=== PATIENT | male | born 1955 | race African-American/Black ===

== ENCOUNTER 2017-10-18 19:53 | Emergency (ER) | payer BC ==
[2017-10-18 20:13] VITALS: BP 251/123; PULSE 87; RESP 20; TEMP 97.8; O2SAT 98
[2017-10-18 20:26] VITALS: BP 251/128; PULSE 93; RESP 18; O2SAT 98
[2017-10-18] MEDS ORDERED: LISI40TA PO (20:30)
[2017-10-18] MEDS ORDERED: ONDANSETRON HCL 4 MG/2 ML VIAL IV PUSH ONE (20:30)
[2017-10-18] MEDS ORDERED: MORPHINE SULFATE 4 MG/ML INJ IV PUSH ONE (20:30)
[2017-10-18 20:34] VITALS: O2SAT 98
--- NOTE | 2017-10-18 20:57 | PD ---
HPI Chief Complaint: Flank/Kidney Pain Time Seen by Provider: 20:24 Travel History International Travel<30 days: No Contact w/Intl Traveler<30days: No Traveled to known affect area: No History of Present Illness HPI 62-year-old male that presents to the ED for evaluation of left flank pain. Per patient his been started today. Per patient is 10 out of 10. He has a history of kidney stones in the past and states that this feels very similar to that. No urinary or bowel movement issues. Per patient his been drinking some today. He states that he has only left-sided flank pain. Per patient his possible blood pressure medication and did not take it today. Patient's blood pressure was noted to be very elevated vicarious. He denies any chest pain or shortness of breath. No headache. Pain is only to the left flank. No injuries. No trauma. No history of aneurysms. No numbness, tingling, weakness. Has no allergies to medication. PFSH Past Medical History Hypertension: Yes Inguinal Hernia: Yes Tetanus Vaccination: > 5 Years Social History Alcohol Use: Yes (etoh daily) Tobacco Use: No Substance Use: No Allergies-Medications (Allergen,Severity, Reaction): Coded Allergies: No Known Allergies (Unverified , 10/18/17) Reported Meds & Prescriptions Reported Meds & Active Scripts Active Percocet (Oxycodone-Acetaminophen) 5-325 mg Tab 1 Tab PO Q6H PRN Flomax (Tamsulosin HCl) 0.4 Mg Cap 0.4 Mg PO HS Diclofenac Sodium DR (Diclofenac Sodium) 75 Mg Tabdr 75 Mg PO BID PRN Reported Lisinopril 40 Mg Tab 40 Mg PO DAILY Review of Systems Except as stated in HPI: all other systems reviewed are Neg Physical Exam Narrative GENERAL: SKIN: Warm and dry. HEAD: Atraumatic. Normocephalic. EYES: Pupils equal and round. No scleral icterus. No injection or drainage. ENT: No nasal bleeding or discharge. Mucous membranes pink and moist. Tongue is midline. No uvula deviation. NECK: Trachea midline. No JVD. CARDIOVASCULAR: Regular rate and rhythm. No murmurs, S3, S4. RESPIRATORY: No accessory muscle use. Clear to auscultation. Breath sounds equal bilaterally. GASTROINTESTINAL: Abdomen soft, non-tender, nondistended. Hepatic and splenic margins not palpable. Tender to palpation the left CVA area. No lumbar, thoracic, cervical spine tenderness to palpation. MUSCULOSKELETAL: Extremities without clubbing, cyanosis, or edema. No obvious deformities. Full range of motion of the upper and lower extremities bilaterally. 2+ pulses bilaterally. NEUROLOGICAL: Awake and alert. No obvious cranial nerve deficits. Motor grossly within normal limits. Five out of 5 muscle strength in the arms and legs. Normal speech. PSYCHIATRIC: Appropriate mood and affect; insight and judgment normal. Data Data Last Documented VS Vital Signs Date Time Temp Pulse Resp B/P (MAP) Pulse Ox O2 Delivery O2 Flow Rate FiO2 10/18/17 21:44 89 16 214/106 (142) 96 Room Air 10/18/17 20:13 97.8 Orders Orders Electrocardiogram (10/18/17:28) Complete Blood Count With Diff (10/18/17:28) Comprehensive Metabolic Panel (10/18/17:28) Ckmb (Isoenzyme) Profile (10/18/17 20:28) Troponin I (10/18/17:28) Prothrombin Time / Inr (Pt) (10/18/17:28) Act Partial Throm Time (Ptt) (10/18/17 20:28) Blood Culture (10/18/17 20:28) Lipase (10/18/17:28) Urinalysis - C+S If Indicated (10/18/17:28) Magnesium (Mg) (10/18/17 20:28) Chest, Single Ap (10/18/17 20:28) Ct Abd/Pel W/O Iv Contrast (10/18/17:28) Iv Access Insert/Monitor (10/18/17:28) Ecg Monitoring (10/18/17:28) Oximetry (10/18/17 20:28) Morphine Inj (Morphine Inj) (10/18/17 20:30) Ondansetron Inj (Zofran Inj) (10/18/17 20:30) Labetalol Inj (Trandate Inj) (10/18/17 21:15) CKMB (10/18/17 20:40) CKMB% (10/18/17 20:40) Labetalol Inj (Trandate Inj) (10/18/17 21:45) Ketorolac Inj (Toradol Inj) (10/18/17 22:00) Labs Laboratory Tests Test 10/18/17 20:40 10/18/17 21:34 White Blood Count 6.9 TH/MM3 Red Blood Count 4.32 MIL/MM3 Hemoglobin 13.8 GM/DL Hematocrit 39.4 % Mean Corpuscular Volume 91.4 FL Mean Corpuscular Hemoglobin 31.9 PG Mean Corpuscular Hemoglobin Concent 34.9 % Red Cell Distribution Width 11.8 % Platelet Count 186 TH/MM3 Mean Platelet Volume 8.4 FL Neutrophils (%) (Auto) 79.2 % Lymphocytes (%) (Auto) 14.4 % Monocytes (%) (Auto) 5.6 % Eosinophils (%) (Auto) 0.7 % Basophils (%) (Auto) 0.1 % Neutrophils # (Auto) 5.5 TH/MM3 Lymphocytes # (Auto) 1.0 TH/MM3 Monocytes # (Auto) 0.4 TH/MM3 Eosinophils # (Auto) 0.0 TH/MM3 Basophils # (Auto) 0.0 TH/MM3 CBC Comment DIFF FINAL Differential Comment Prothrombin Time 10.2 SEC Prothromb Time International Ratio 1.0 RATIO Activated Partial Thromboplast Time 21.4 SEC Blood Urea Nitrogen 15 MG/DL Creatinine 1.08 MG/DL Random Glucose 117 MG/DL Total Protein 7.9 GM/DL Albumin 4.1 GM/DL Calcium Level 9.1 MG/DL Magnesium Level 2.0 MG/DL Alkaline Phosphatase 74 U/L Aspartate Amino Transf (AST/SGOT) 23 U/L Alanine Aminotransferase (ALT/SGPT) 28 U/L Total Bilirubin 0.4 MG/DL Sodium Level 142 MEQ/L Potassium Level 3.4 MEQ/L Chloride Level 106 MEQ/L Carbon Dioxide Level 24.3 MEQ/L Anion Gap 12 MEQ/L Estimat Glomerular Filtration Rate 84 ML/MIN Total Creatine Kinase 283 U/L Creatine Kinase MB 3.1 NG/ML Troponin I LESS THAN 0.02 NG/ML Lipase 146 U/L Urine Color YELLOW Urine Turbidity CLEAR Urine pH 7.0 Urine Specific Tyner 1.014 Urine Protein TRACE mg/dL Urine Glucose (UA) NEG mg/dL Urine Ketones NEG mg/dL Urine Occult Blood MOD Urine Nitrite NEG Urine Bilirubin NEG Urine Urobilinogen LESS THAN 2.0 MG/DL Urine Leukocyte Esterase NEG Urine RBC 177 /hpf Urine WBC 3 /hpf Urine Squamous Epithelial Cells <1 /hpf Urine Hyaline Casts 1 /lpf Urine Mucus FEW /lpf Microscopic Urinalysis Comment CULT NOT INDICATED MDM Medical Decision Making Medical Screen Exam Complete: Yes Emergency Medical Condition: Yes Medical Record Reviewed: Yes Interpretation(s) CBC & BMP Diagram 10/18/17 20:40 Total Protein 7.9, Albumin 4.1, Calcium Level 9.1, Magnesium Level 2.0, Alkaline Phosphatase 74, Aspartate Amino Transf (AST/SGOT) 23, Alanine Aminotransferase (ALT/SGPT) 28, Total Bilirubin 0.4 Last Impressions Chest X-Ray 10/18/172027 Signed Impressions: Service Date/Time: Wednesday, October 18, 2017 20:50 - CONCLUSION: No acute disease. Remy Vo MD Abdomen/Pelvis CT 10/18/172027 Signed Impressions: Service Date/Time: Wednesday, October 18, 2017 20:43 - CONCLUSION: 1. 2 mm calculus at left ureterovesical junction resulting in mild left-sided obstructive uropathy. 2. 2 mm nonobstructing right renal calculus. Remy Vo MD UA shows blood Differential Diagnosis Kidney stone versus flank pain versus muscle strain versus pancreatitis versus acute abdomen versus hypertension versus hypertensive emergency versus hypertension urgency Narrative Course 62-year-old male that presents to the ED for evaluation of left flank pain. Patient was properly examined and was found to have signs and symptoms consistent appears to be possible kidney stone. Of note it was noted the patient's blood pressure was very high. Patient did not take his blood pressure medications today. He has no chest pain or any other cardiac disease at this time. He does appear to be in quite significant amount of pain. At this time labs and imaging were ordered. Patient was started on IV pain medications. He will be reassessed. Patient was reassessed and does feel improved from pain. Patient's blood pressures did come down with medication and symptoms overall have improved. Patient was given labetalol to help bring down the blood pressure down as patient continues to have high elevated blood pressure. Patient has a 2 mm kidney stone. Patient was told that this likely will pass on its own. Patient agrees with discharge instructions. Patient was given prescriptions for Percocet, Flomax, diclofenac sodium. Told to drink plenty of fluids. Follow with PCP. See ED if worsening symptoms. Diagnosis Primary Impression: Kidney stone on left side Patient Instructions: General Instructions, Narcotic given in the ED Additional Instructions: Take medications as prescribed. Follow-up with PCP. See ED for any worsening symptoms. Do not drink or drive while taking pain medication. Apply ice or heat as needed for pain Med/Other Pt SpecificInfo: Prescription(s) given Scripts Oxycodone-Acetaminophen (Percocet) 5-325 mg Tab 1 TAB PO Q6H Y for PAIN, #14 TAB 0 Refills Prov: Lambert Moffett MD 10/18/17 Tamsulosin (Flomax) 0.4 Mg Cap 0.4 MG PO HS for Manage Prostate Problems, #10 CAP 0 Refills Prov: Lambert Moffett MD 10/18/[address] (Diclofenac Sodium DR) 75 Mg Tabdr 75 MG PO BID Y for PAIN SCALE 1 TO 10, #20 TAB 0 Refills Prov: Lambert Moffett MD 10/18/17 Disposition: 01 DISCHARGE HOME Condition: Stable Murphy Schultz Oct 18, 2017 20:57
[2017-10-18 21:00] LABS: AUTOMATED NEUTROPHIL # 5.5 TH/MM3 (1.8-7.7); BASOPHIL % 0.1 % (0.0-2.0); EOSINOPHIL % 0.7 % (0.0-4.0); HEMATOCRIT 39.4 % (39.0-51.0); HEMOGLOBIN 13.8 GM/DL (13.0-17.0); LYMPH % 14.4 % (9.0-44.0); MEAN CELL VOLUME 91.4 FL (80.0-100.0); MEAN CORPUSCULAR HEMOGLOBIN 31.9 PG (27.0-34.0); MEAN CORPUSCULAR HGB CONC 34.9 % (32.0-36.0); MEAN PLATELET VOLUME 8.4 FL (7.0-11.0); MONO % 5.6 % (0.0-8.0); MONOCYTE # 0.4 TH/MM3 (0-0.9); NEUT % 79.2 % (16.0-70.0); PLATELET COUNT 186 TH/MM3 (150-450); RED BLOOD COUNT 4.32 MIL/MM3 (4.50-5.90); RED CELL DISTRIBUTION WIDTH 11.8 % (11.6-17.2); WHITE BLOOD COUNT 6.9 TH/MM3 (4.0-11.0)
[2017-10-18 21:14] LABS: PROTHROMBIN TIME - PATIENT 10.2 SEC (9.8-11.6)
[2017-10-18] MEDS ORDERED: LABETALOL HCL 100 MG/20 ML VIAL IV PUSH ONE ×2 (21:15→21:45)
[2017-10-18 21:24] LABS: ALBUMIN 4.1 GM/DL (3.4-5.0); AST (GOT) 23 U/L (15-37); BICARBONATE 24.3 MEQ/L (21.0-32.0); BLOOD UREA NITROGEN 15 MG/DL (7-18); CALCIUM 9.1 MG/DL (8.5-10.1); CHLORIDE 106 MEQ/L (98-107); CREATININE 1.08 MG/DL (0.60-1.30); GLOMERULAR FILTRATION RATE 84 ML/MIN (>89); GLUCOSE,RANDOM 117 MG/DL (74-106); SODIUM (NA) 142 MEQ/L (136-145)
[2017-10-18 21:25] LABS: ALT (GPT) 28 U/L (12-78)
--- NOTE | 2017-10-18 21:27 | RADRPT ---
EXAM DATE/TIME: 10/18/2017 20:50 [facility] COMPARISON: No previous studies available for comparison. INDICATIONS : Left chest pain. MEDICAL HISTORY : None. SURGICAL HISTORY : None. ENCOUNTER: Initial ACUITY: 2 days PAIN SCORE: 6/10 LOCATION: Left chest FINDINGS: A single view of the chest demonstrates the lungs to be symmetrically aerated without evidence of mas s, infiltrate or effusion. The cardiomediastinal contours are unremarkable. Osseous structures are intact. CONCLUSION: No acute disease. Remy Vo MD on October 18, 2017 at 21:24 Board Certified Radiologist. This report was verified electronically.
[2017-10-18 21:28] LABS: ALKALINE PHOSPHATASE 74 U/L (45-117); TOTAL BILIRUBIN ADULT 0.4 MG/DL (0.2-1.0); TOTAL PROTEIN 7.9 GM/DL (6.4-8.2); TROPONIN I LESS THAN 0.02 NG/ML (0.02-0.05)
--- NOTE | 2017-10-18 21:38 | EKG ---
Date Performed: 10/18/2017 Time Performed: 20:31:45 PTAGE: 62 years EKG: Sinus rhythm NORMAL ECG NO PREVIOUS TRACING DOCTOR: Best Alvarez Interpretating Date/Time 10/18/2017 21:36:49
[2017-10-18 21:44] VITALS: BP 214/106; PULSE 89; RESP 16; O2SAT 96
[2017-10-18 21:50] LABS: BILIRUBIN, URINE NEG (NEG); BLOOD, URINE MOD (NEG); GLUCOSE,URINE NEG (NEG); HYALINE CAST, URINE 1 /lpf (RARE); KETONE, URINE NEG (NEG); MUCUS URINE FEW /lpf (OCC); NITRITE,URINE NEG (NEG); SQUAMOUS EPITHELIAL CELL URINE <1 /hpf (0-5); URINE COLOR YELLOW (YELLW/STRAW); URINE LEUKOCYTE ESTERASE NEG (NEG)
--- NOTE | 2017-10-18 21:54 | RADRPT ---
EXAM DATE/TIME: 10/18/2017 20:43 [facility] COMPARISON: No previous studies available for comparison. INDICATIONS : Right sided flank pain. ORAL CONTRAST: No oral contrast ingested. RADIATION DOSE: 7.86 CTDIvol (mGy) MEDICAL HISTORY : Hypertension. Inguinal hernia SURGICAL HISTORY : None. ENCOUNTER: Initial ACUITY: 1 day PAIN SCALE: 10/10 LOCATION: Right flank TECHNIQUE: Volumetric scanning of the abdomen and pelvis was performed. Using automated exposure control and ad justment of the mA and/or kV according to patient size, radiation dose was kept as low as reasonably achievable to obtain optimal diagnostic quality images. DICOM format image data is available electro nically for review and comparison. FINDINGS: Lung bases are clear. No acute findings in the liver, spleen, adrenals or pancreas. No calcified gall stones. There is a 2 mm nonobstructing calculus upper pole right kidney. No left renal calculi identified. There is a 2 mm calculus at the left ureterovesical junction which results in mild left-sided obstructive uropathy with minimal dilatation of the left ureter and left r enal collecting system. CONCLUSION: 1. 2 mm calculus at left ureterovesical junction resulting in mild left-sided obstructive uropathy. 2. 2 mm nonobstructing right renal calculus. Remy Vo MD on October 18, 2017 at 21:48 Board Certified Radiologist. This report was verified electronically.
[2017-10-18] MEDS ORDERED: KETOROLAC TROMETHAMINE 30 MG/ML (IVP) VIAL IV PUSH ONE (22:00)
[2017-10-18] MEDS ORDERED: DICL75TA PO (22:27)
[2017-10-18] MEDS ORDERED: TAMS5CAP PO (22:27)
[2017-10-18] MEDS ORDERED: PERC5TAB12 PO (22:27)
[2017-10-18 22:28] VITALS: BP 219/106; PULSE 91; RESP 16; O2SAT 96
== END 2017-10-18 22:58 | disposition home or self-care (01) ==
LOC: NED 19:53 → NEPE 22:58
DX: N20.0 Calculus of kidney (principal); I10 Essential (primary) hypertension; Z87.442 Personal history of urinary calculi; Z79.899 Other long term (current) drug therapy
CPT/HCPCS: 71045; 74176; 80053; 81001; 82550; 82552; 83690; 83735; 84484; 85025; 85610; 85730; 87040; 93005; 96374; 96375; 99285; J1885; J2270; J2405